=== PATIENT | female | born 1970 | race Caucasian/White ===

== ENCOUNTER 2018-05-01 20:20 | Emergency (ER) | payer OTHER, SELFPAY ==
[~2018-05-01] VITALS: Ht 167.6 cm; Wt 62.5 kg
[2018-05-01 20:22] VITALS: BP 124/84
[2018-05-01] MEDS ORDERED: DIPH,PERTUSS(ACELL),TET VAC/PF 0.5 ML IM-VACC ONE ×2 (20:33→21:00)
[2018-05-01] MEDS ORDERED: LIDOCAINE-MPF 2% ,5ML ONE (20:33)
[2018-05-01] MEDS ORDERED: LIDOCAINE 2%, 20ML SQ ONE (21:00)
[2018-05-01] MEDS ORDERED: HYDROcodone/APAP 5/325 TABLET ONE (21:01)
[2018-05-01] MEDS ORDERED: ONDANSETRON ODT 4 MG ONE (21:01)
[2018-05-01] MEDS ORDERED: ONDANSETRON ODT 4 MG PO ONE (21:30)
[2018-05-01] MEDS ORDERED: HYDROcodone/APAP 5/325 TABLET PO ONE (21:30)
== END 2018-05-01 21:35 | disposition home or self-care (01) ==
LOC: ED 21:31
DX: S61.253A Open bite of left middle finger without damage to nail, initial encounter (principal); W54.0XXA Bitten by dog, initial encounter; Y93.89 Activity, other specified; Y92.89 Other specified places as the place of occurrence of the external cause; Y99.8 Other external cause status
CPT/HCPCS: 12001; 73140; 90471; 90715; 99284; Q0162